=== PATIENT | female | born 1990 | race Caucasian/White ===

== ENCOUNTER 2017-10-14 09:19 | Outpatient (CLI) | payer MEDICAID ==
[2017-10-14 10:24] LABS: ADD MAN DIFF? NO
[2017-10-14 10:26] LABS: BASOPHILS % 0.3 % (0.0-2.0); EOSINOPHILS # 0.1 10^3/ul (0.0-0.5); EOSINOPHILS % 1.3 % (0.0-7.0); HEMATOCRIT 32.7 % (37.0-47.0); HEMOGLOBIN 11.3 g/dl (12.0-16.0); LYMPHOCYTES # 1.3 10^3/ul (0.8-2.9); LYMPHOCYTES % 20.7 % (15.0-51.0); MEAN CORPUSCULAR HEMOGLOBIN 32.7 pg (29.0-33.0); MEAN CORPUSCULAR HGB CONC 34.6 g/dl (32.0-37.0); MEAN CORPUSCULAR VOLUME 94.5 fl (82.0-101.0); MEAN PLATELET VOLUME 9.3 fl (7.4-10.4); MONOCYTE # 0.6 10^3/ul (0.3-0.9); MONOCYTES % 10.2 % (0.0-11.0); NEUTROPHIL # 4.1 10^3/ul (1.6-7.5); PLATELET COUNT 225 10^3/UL (140-415); RED BLOOD COUNT 3.46 10^6/ul (4.20-5.40); RED CELL DISTRIBUTION WIDTH 12.5 % (11.5-14.5)
[2017-10-14 10:26] LABS: WHITE BLOOD COUNT 6.2 10^3/ul (4.8-10.8)
[2017-10-14 10:45] LABS: ALANINE AMINOTRANSFERASE 31 IU/L (13-69); ALBUMIN 3.3 g/dl (3.3-4.9); ALKALINE PHOSPHATASE 126 IU/L (42-121); AMYLASE 60 U/L (11-123); ANION GAP 10 (8-16); ASPARTATE AMINO TRANSFERASE 24 IU/L (15-46); BILIRUBIN,INDIRECT 0.1 mg/dl (0-1.1); BILIRUBIN,TOTAL 0.1 mg/dl (0.2-1.3); BLOOD UREA NITROGEN 9 mg/dl (7-20); CALCIUM 8.3 mg/dl (8.4-10.2); CARBON DIOXIDE 26 mmol/L (21-31); CHLORIDE 105 mmol/L (97-110); CREATININE 0.56 mg/dl (0.44-1.00); GLUCOSE 83 mg/dl (70-220); LIPASE 25 U/L (23-300); POTASSIUM 3.5 mmol/L (3.5-5.1); SODIUM 137 mmol/L (135-144); TOTAL PROTEIN 6.6 g/dl (6.1-8.1)
[2017-10-14 11:07] LABS: ADD UMIC YES; UR ASCORBIC ACID NEGATIVE (NEGATIVE); UR BACTERIA FEW /HPF (NONE SEEN); UR BILIRUBIN (Dip) NEGATIVE (NEGATIVE); UR BLOOD (Dip) NEGATIVE (NEGATIVE); UR CLARITY SLIGHTLY CLOUDY (CLEAR); UR COLOR YELLOW (YELLOW); UR GLUCOSE (Dip) NEGATIVE (NEGATIVE); UR KETONES (Dip) NEGATIVE (NEGATIVE); UR LEUKOCYTE ESTERASE (Dip) TRACE Leu/ul (NEGATIVE); UR MUCUS FEW /HPF (NONE SEEN); UR NITRITE (Dip) NEGATIVE (NEGATIVE); UR RBC 1 /HPF (0-5); UR SPECIFIC GRAVITY (Dip) 1.017 (1.003-1.030); UR SQUAMOUS EPITHELIAL CELL MODERATE /HPF (FEW); UR TOTAL PROTEIN (Dip) NEGATIVE (NEGATIVE); UR UROBILINOGEN (Dip) 2+ mg/dL (NEGATIVE); UR WBC 8 /HPF (0-5)
== END 2017-10-14 12:20 | disposition home or self-care (01) ==
LOC: OBT 09:19 → L-D 09:19 → OBT 12:20
DX: O26.893 Other specified pregnancy related conditions, third trimester (principal); Z3A.31 31 weeks gestation of pregnancy
CPT/HCPCS: 76705; 80053; 81001; 82150; 83690; 85025

== ENCOUNTER 2017-10-24 10:07 | Outpatient (CLI) | payer MEDICAID ==
[2017-10-24 11:14] LABS: ADD MAN DIFF? NO
[2017-10-24 11:19] LABS: BASOPHILS % 0.3 % (0.0-2.0); EOSINOPHILS # 0.2 10^3/ul (0.0-0.5); EOSINOPHILS % 1.5 % (0.0-7.0); HEMATOCRIT 32.6 % (37.0-47.0); HEMOGLOBIN 11.2 g/dl (12.0-16.0); LYMPHOCYTES # 2.3 10^3/ul (0.8-2.9); LYMPHOCYTES % 18.6 % (15.0-51.0); MEAN CORPUSCULAR HEMOGLOBIN 32.8 pg (29.0-33.0); MEAN CORPUSCULAR HGB CONC 34.4 g/dl (32.0-37.0); MEAN CORPUSCULAR VOLUME 95.6 fl (82.0-101.0); MEAN PLATELET VOLUME 9.4 fl (7.4-10.4); MONOCYTE # 0.8 10^3/ul (0.3-0.9); MONOCYTES % 6.5 % (0.0-11.0); NEUTROPHIL # 8.9 10^3/ul (1.6-7.5); PLATELET COUNT 295 10^3/UL (140-415); RED BLOOD COUNT 3.41 10^6/ul (4.20-5.40); RED CELL DISTRIBUTION WIDTH 12.3 % (11.5-14.5)
[2017-10-24 11:19] LABS: WHITE BLOOD COUNT 12.4 10^3/ul (4.8-10.8)
== END 2017-10-24 14:24 | disposition home or self-care (01) ==
LOC: OBT 10:07 → L-D 10:07 → OBT 14:24
DX: O26.893 Other specified pregnancy related conditions, third trimester (principal); Z3A.32 32 weeks gestation of pregnancy; V49.9XXA Car occupant (driver) (passenger) injured in unspecified traffic accident, initial encounter; Y92.410 Unspecified street and highway as the place of occurrence of the external cause
CPT/HCPCS: 76818; 85025; 85460

== ENCOUNTER 2017-12-17 10:03 | Inpatient (IN) | payer MEDICAID ==
[2017-12-17] MEDS ORDERED: CARBOPROST 250 MCG INJ IM (12:30)
[2017-12-17] MEDS ORDERED: BUTORPHANOL 2 MG INJ IV (12:30)
[2017-12-17] MEDS ORDERED: METHYLERGONOVINE 0.2 MG INJ IM (12:30)
[2017-12-17] MEDS ORDERED: MISOPROSTOL 200 MCG TAB PR (12:30)
[2017-12-17] MEDS ORDERED: OXYTOCIN 30 UNITS/LR 500 ML IV (12:30)
[2017-12-17] MEDS ORDERED: IBUPROFEN 600 MG TAB PO (12:30)
[2017-12-17] MEDS ORDERED: LIDOCAINE 1% (MPF) 30 ML INJ INJ (12:30)
[2017-12-17] MEDS: LACTATED RINGER'S 1,000 ML IV ×2 (12:39→20:37)
[2017-12-17 12:44] LABS: ADD MAN DIFF? NO
[2017-12-17 12:48] LABS: BASOPHILS % 0.3 % (0.0-2.0); EOSINOPHILS # 0.1 10^3/ul (0.0-0.5); EOSINOPHILS % 0.7 % (0.0-7.0); HEMATOCRIT 33.5 % (37.0-47.0); HEMOGLOBIN 11.3 g/dl (12.0-16.0); LYMPHOCYTES # 1.6 10^3/ul (0.8-2.9); LYMPHOCYTES % 14.8 % (15.0-51.0); MEAN CORPUSCULAR HEMOGLOBIN 31.7 pg (29.0-33.0); MEAN CORPUSCULAR HGB CONC 33.7 g/dl (32.0-37.0); MEAN CORPUSCULAR VOLUME 93.8 fl (82.0-101.0); MEAN PLATELET VOLUME 9.9 fl (7.4-10.4); MONOCYTE # 0.7 10^3/ul (0.3-0.9); MONOCYTES % 5.9 % (0.0-11.0); NEUTROPHIL # 8.5 10^3/ul (1.6-7.5); NEUTROPHILS % 77.8 % (39.0-77.0); PLATELET COUNT 254 10^3/UL (140-415); RED BLOOD COUNT 3.57 10^6/ul (4.20-5.40); RED CELL DISTRIBUTION WIDTH 12.7 % (11.5-14.5)
[2017-12-17 13:03] LABS: INR 0.94; PROTIME 12.7 Sec (11.9-14.9)
[2017-12-17 13:04] LABS: PARTIAL THROMBOPLASTIN TIME 29.1 Sec (25.0-35.0)
[2017-12-17 13:12] LABS: ALANINE AMINOTRANSFERASE 22 IU/L (13-69); ALBUMIN 3.4 g/dl (3.3-4.9); ALBUMIN/GLOBULIN RATIO 0.97; ALKALINE PHOSPHATASE 189 IU/L (42-121); ANION GAP 12 (8-16); ASPARTATE AMINO TRANSFERASE 20 IU/L (15-46); BILIRUBIN,INDIRECT 0.1 mg/dl (0-1.1); BILIRUBIN,TOTAL 0.1 mg/dl (0.2-1.3); BLOOD UREA NITROGEN 14 mg/dl (7-20); CALCIUM 8.9 mg/dl (8.4-10.2); CARBON DIOXIDE 26 mmol/L (21-31); CHLORIDE 107 mmol/L (97-110); CREATININE 0.66 mg/dl (0.44-1.00); GLUCOSE 102 mg/dl (70-220); SODIUM 141 mmol/L (135-144); TOTAL PROTEIN 6.9 g/dl (6.1-8.1)
[2017-12-17] MEDS: DINOPROSTONE 10 MG VAG SUPP VAG (13:15)
[2017-12-17 13:36] LABS: HEPATITIS B SURFACE ANTIGEN NEGATIVE (NEGATIVE)
[2017-12-17 19:48] LABS: RAPID PLASMA REAGIN NONREACTIVE (NR)
[2017-12-18] MEDS: LACTATED RINGER'S 1,000 ML IV ×3 (04:18→17:08)
[2017-12-18] MEDS ORDERED: ONDANSETRON 4 MG INJ (06:25)
[2017-12-18] MEDS: ONDANSETRON 4 MG INJ IV (06:50)
[2017-12-18] MEDS ORDERED: FENTAnyl 2MCG/ML-ROPIV 0.2% 100 ML (08:15)
[2017-12-18] MEDS: BUTORPHANOL 2 MG INJ IV (08:27)
[2017-12-18] MEDS: LEVOTHYROXINE 150 MCG TAB PO (08:40)
[2017-12-18] MEDS ORDERED: NALOXONE (0.4 MG/ML) INJ IV (09:30)
[2017-12-18] MEDS ORDERED: OXYTOCIN 30 UNITS/LR 500 ML IV ×2 (14:30→21:30)
[2017-12-18] MEDS: FENTAnyl 2MCG/ML-ROPIV 0.2% 100 ML BAG EPI (14:55)
[2017-12-18] MEDS: OXYTOCIN 30 UNITS/LR 500 ML IV ×2 (18:42→18:47)
[2017-12-18] MEDS ORDERED: HYDROCODONE/APAP (5/325) TAB PO ×2 (21:30)
[2017-12-18] MEDS ORDERED: METHYLERGONOVINE 0.2 MG INJ IM (21:30)
[2017-12-18] MEDS ORDERED: ZOLPIDEM 5 MG TAB PO (21:30)
[2017-12-18] MEDS ORDERED: CARBOPROST 250 MCG INJ IM (21:30)
[2017-12-18] MEDS ORDERED: DIBUCAINE 1% 30 GM OINT PR (21:30)
[2017-12-18] MEDS ORDERED: MISOPROSTOL 200 MCG TAB PR (21:30)
[2017-12-18] MEDS: LACTATED RINGER'S 1,000 ML IV* (21:30)
[2017-12-18] MEDS: IBUPROFEN 600 MG TAB PO (23:33)
[2017-12-18] MEDS: CEPHALEXIN 500 MG CAP PO (23:33)
[2017-12-18] MEDS: WITCH HAZEL/GLYCERIN PAD PR (23:34)
[2017-12-18] MEDS: BENZOCAINE 20% 56 ML SPRAY TOP (23:34)
[2017-12-18] MEDS: LANOLIN 7 GM TUBE TOP (23:34)
[2017-12-19] MEDS: LACTATED RINGER'S 1,000 ML IV* ×2 (05:30→13:30)
[2017-12-19] MEDS: LEVOTHYROXINE 150 MCG TAB PO (06:08)
[2017-12-19] MEDS: IBUPROFEN 600 MG TAB PO ×3 (06:08→18:13)
[2017-12-19] MEDS: CEPHALEXIN 500 MG CAP PO ×3 (06:08→18:13)
[2017-12-19] MEDS: MAGNESIUM HYDROXIDE 30ML CUP PO ×2 (09:55→20:14)
[2017-12-19] MEDS: SENNA/DOCUSATE NA (8.6MG/50MG) TAB PO ×2 (09:55→20:14)
[2017-12-19 10:32] LABS: ADD MAN DIFF? NO
[2017-12-19 10:34] LABS: BASOPHIL # 0.1 10^3/ul (0.0-0.1); BASOPHILS % 0.3 % (0.0-2.0); EOSINOPHILS # 0.1 10^3/ul (0.0-0.5); EOSINOPHILS % 0.5 % (0.0-7.0); HEMATOCRIT 32.7 % (37.0-47.0); HEMOGLOBIN 10.9 g/dl (12.0-16.0); MEAN CORPUSCULAR HEMOGLOBIN 31.5 pg (29.0-33.0); MEAN CORPUSCULAR HGB CONC 33.3 g/dl (32.0-37.0); MEAN CORPUSCULAR VOLUME 94.5 fl (82.0-101.0); MEAN PLATELET VOLUME 9.8 fl (7.4-10.4); MONOCYTE # 1.1 10^3/ul (0.3-0.9); MONOCYTES % 6.7 % (0.0-11.0); NEUTROPHIL # 13.3 10^3/ul (1.6-7.5); PLATELET COUNT 231 10^3/UL (140-415); RED BLOOD COUNT 3.46 10^6/ul (4.20-5.40); RED CELL DISTRIBUTION WIDTH 12.8 % (11.5-14.5)
[2017-12-19 10:34] LABS: WHITE BLOOD COUNT 16.6 10^3/ul (4.8-10.8)
[2017-12-19 13:03] LABS: RHOGAM PROFILE 1 1
[2017-12-20] MEDS: IBUPROFEN 600 MG TAB PO ×3 (00:16→11:52)
[2017-12-20] MEDS: CEPHALEXIN 500 MG CAP PO ×3 (00:16→11:52)
[2017-12-20] MEDS: LACTATED RINGER'S 1,000 ML IV* ×2 (02:09→05:30)
[2017-12-20] MEDS: LEVOTHYROXINE 150 MCG TAB PO (08:04)
[2017-12-20] MEDS: SENNA/DOCUSATE NA (8.6MG/50MG) TAB PO (08:04)
[2017-12-20] MEDS: DIPHTH/TET/ACEL PERTUSS (ADULT) 0.5 ML VIAL IM* (08:05)
[2017-12-20] MEDS: MAGNESIUM HYDROXIDE 30ML CUP PO (08:06)
[2017-12-20] MEDS: MEASLES,MUMPS,RUBELLA VACCINE INJ SC* (09:00)
[2017-12-20] MEDS: VARICELLA VACCINE LIVE/PF 1,350 UNIT/0.5 ML ML SC* (09:00)
[2017-12-20 09:02] LABS: ADD MAN DIFF? NO
[2017-12-20 09:04] LABS: BASOPHIL # 0.1 10^3/ul (0.0-0.1); BASOPHILS % 0.5 % (0.0-2.0); EOSINOPHILS # 0.2 10^3/ul (0.0-0.5); EOSINOPHILS % 1.5 % (0.0-7.0); HEMATOCRIT 33.6 % (37.0-47.0); HEMOGLOBIN 11.1 g/dl (12.0-16.0); LYMPHOCYTES # 2.4 10^3/ul (0.8-2.9); LYMPHOCYTES % 24.1 % (15.0-51.0); MEAN CORPUSCULAR HEMOGLOBIN 31.5 pg (29.0-33.0); MEAN CORPUSCULAR VOLUME 95.5 fl (82.0-101.0); MONOCYTE # 0.8 10^3/ul (0.3-0.9); MONOCYTES % 8.3 % (0.0-11.0); NEUTROPHIL # 6.5 10^3/ul (1.6-7.5); NEUTROPHILS % 65.1 % (39.0-77.0); PLATELET COUNT 226 10^3/UL (140-415); RED BLOOD COUNT 3.52 10^6/ul (4.20-5.40); RED CELL DISTRIBUTION WIDTH 13.1 % (11.5-14.5)
== END 2017-12-20 15:55 | disposition home or self-care (01) | DRG 775 ==
LOC: L-D 10:03 → PP1 12-18 21:05
PROC: 10E0XZZ Delivery of Products of Conception, External Approach (ICD-10-PCS; principal; 2017-12-17 10:00)
PROC: 0HQ9XZZ Repair Perineum Skin, External Approach (ICD-10-PCS; 2017-12-17 10:00)
PROC: 3E0P7VZ Introduction of Hormone into Female Reproductive, Via Natural or Artificial Opening (ICD-10-PCS; 2017-12-17 10:00)
DX: O70.0 First degree perineal laceration during delivery (principal); O99.284 Endocrine, nutritional and metabolic diseases complicating childbirth; E03.9 Hypothyroidism, unspecified; Z3A.40 40 weeks gestation of pregnancy; Z37.0 Single live birth
CPT/HCPCS: 62319; 76815; 80053; 85025; 85610; 85730; 86592; 86850; 86885; 86900; 86901; 87340

== ENCOUNTER 2018-11-20 13:03 | Emergency (ER) | payer OTHER, MEDICAID ==
[2018-11-20] MEDS: ONDANSETRON (ODT) 4 MG TAB ODT (15:35)
[2018-11-20] MEDS: BELLADONNA/PHENOBARBITAL TAB PO (15:35)
[2018-11-20 15:37] LABS: URINE BLOOD (Dip) POC Negative (NEGATIVE); URINE GLUCOSE (Dip) POC Negative (NEGATIVE); URINE KETONES (Dip) POC 4+ (NEGATIVE); URINE LEUKOCYTE EST (Dip) POC Negative (NEGATIVE); URINE NITRITE (Dip) POC Negative (NEGATIVE); URINE TOTAL PROTEIN POC 2+ (NEGATIVE)
[2018-11-20] MEDS: LIDOCAINE/MYLANTA 40 ML BTL PO (15:37)
== END 2018-11-20 16:09 | disposition home or self-care (01) ==
LOC: FTE 13:03
DX: R11.2 Nausea with vomiting, unspecified (principal); E03.9 Hypothyroidism, unspecified; Z87.891 Personal history of nicotine dependence
CPT/HCPCS: 81003; 81025; 99283